=== PATIENT | male | born 1995 | race African-American/Black ===

== ENCOUNTER 2020-01-17 00:22 | Observation (INO) | payer SELFPAY ==
[2020-01-17 02:11] VITALS: BMI 23.2
[2020-01-17 02:35] LABS: #Basophils 0.1 thou/uL (0.0-0.2); #Lymphocytes 1.3 thou/uL (1.20-3.40); #Monocytes 0.2 thou/uL (0.11-0.59); #Neutrophils 12.4 thou/uL (1.40-6.50); %Basophils 0.6 % (0.0-1.0); %Eosinophils 0.1 % (0.0-10.0); %Lymphocytes 9.5 % (21.0-51.0); %Monocytes 1.3 % (0.0-10.0); %Neutrophils 88.6 % (42.0-75.0); Hemoglobin 14.1 g/dL (14.0-18.0); Mean Corpuscular HGB CONC 30.5 g/dL (32.0-36.0); Mean Corpuscular Hemoglobin 27.8 pg (27.0-31.0); Mean Corpuscular Volume 91.4 fL (78.0-98.0); Mean Platelet Volume 9.6 fL (7.4-10.4); Platelet Count 232 thou/uL (130-400); RBC Distribution Width 12.5 % (11.5-14.5); Red Blood Cell (RBC) Count 5.07 mill/uL (4.70-6.10); White Blood Cell (WBC) Count 14.1 thou/uL (4.8-10.8)
[2020-01-17 02:48] LABS: ALT (SGPT) 53 U/L (8-55); AST (SGOT) 22 U/L (5-34); Albumin 3.9 g/dL (3.5-5.0); Alkaline Phosphatase 51 U/L (40-110); Anion Gap 15 mmol/L (10-20); BUN (Urea Nitrogen) 9 mg/dL (8.9-20.6); Bilirubin, Total 0.4 mg/dL (0.2-1.2); Calc. Creatinine Clearance 149 mL/min (70-130); Calcium 9.1 mg/dL (7.8-10.44); Carbon Dioxide 23 mmol/L (22-29); Chloride 105 mmol/L (98-107); Estimated GFR-MDRD Greater than 90; Globulin 3.7 g/dL (2.4-3.5); Glucose 112 mg/dL (70-105); Potassium 4.3 mmol/L (3.5-5.1); Protein, Total 7.6 g/dL (6.0-8.3); Sodium 139 mmol/L (136-145)
[2020-01-17] MEDS: Sodium Chloride 0.9% 1,000 ML IV SCH ×2 (03:18→12:43)
[2020-01-17] MEDS: Ampicillin/Sulbactam 3 GM in Sodium Chloride 0.9% 100 ML IVPB SCH ×4 (03:19→19:59)
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
[2020-01-17] MEDS ORDERED: Piperacillin/Tazobactam 3.375 GM in Sodium Chloride 0.9% 100 ML IVPB SCH (06:00)
[2020-01-17] MEDS: Enoxaparin Sodium 40 MG/0.4 ML SYRINGE SC SCH (08:14)
[2020-01-17] MEDS: Nystatin 500,000 UNITS/5 ML UDCUP SSW SCH ×4 (08:24→19:58)
--- NOTE | 2020-01-17 09:27 | RAD ---
PORTABLE CHEST: DATE: 01/17/2020. PROVIDED CLINICAL HISTORY: Shortness of breath. FINDINGS: Comparison 01/26/2012. Cardiac silhouette appears prominent, which may be at least partially on the ba sis of portable technique. Mild elevation of the right hemidiaphragm, similar to 01/26/2012. No focal consolidation, pleural fluid, or pneumothorax apparent. IMPRESSION: No evidence for an acute cardiopulmonary process. POS: ELIZABETH
[2020-01-17] MEDS ORDERED: Morphine 2 MG/ML SYRINGE SLOW IVP PRN (10:27)
--- NOTE | 2020-01-17 10:30 | PDOC.HOSPP ---
- Subjective Encounter Date: 01/17/20 Encounter Time: 07:15 Subjective: dysphagia and throat pain is better now no trouble breathing is ambulating in room - Objective Vital Signs & Weight: Vital Signs (12 hours) Temp Pulse Resp BP Pulse Ox 01/17/20 07:21 98.3 F 69 18 126/72 99 01/17/20 02:05 98.4 F 54 L 127/74 95 Weight Weight 171 lb 9 oz I&O: 01/16/20 01/17/20 01/18/20 06:59 06:59 06:59 Intake Total 400 Balance 400 Result Diagrams: 01/17/20 02:27 01/17/20 02:27 Hospitalist ROS - Medication Medications: Active Medications Generic Name Dose Route Start Last Admin Trade Name Freq PRN Reason Stop Dose Admin Enoxaparin Sodium 40 mg 01/17/20 09:00 01/17/20 08:14 Lovenox SC Not Given 0900 [place] Sodium Chloride 1,000 mls @ 100 mls/hr 01/17/20 02:00 01/17/20 03:18 Normal Saline 0.9% IV 1,000 mls .Q10H [place] Administration Ampicillin Sodium/Sulbactam 100 mls @ 200 mls/hr 01/17/20 03:00 01/17/20 08: 15 Sodium 3 gm/ Sodium Chloride IVPB 100 mls 0300,0900,1500,2100 [place] Administration Nystatin 500,000 units 01/17/20 09:00 01/17/20 08:24 Mycostatin SSW 500,000 units QID [place] Administration - Exam General Appearance: awake alert Eye: PERRL, anicteric sclera ENT: dry oral mucosa ENT - other findings: right tonsil is enlarged, exudates+ Neck: no JVD Heart: RRR, no murmur Respiratory: no wheezes, no rales Gastrointestinal: soft, non-tender, non-distended, normal bowel sounds Extremities: no cyanosis, no edema Neurological: cranial nerve grossly intact, no focal deficits Psychiatric: normal affect, A&O x 3 Hosp A/P (1) right peritonsillar abscess Status: Acute (2) Tobacco abuse Code(s): Z72.0 - TOBACCO USE Status: Chronic - Plan is npo on unasyn, morphine prn strep throat is -ve await ent opinion gentle iv hydration, wbc is around 14k
[2020-01-17] MEDS: Acetaminophen 325 MG TAB PO PRN ×2 (16:32→23:22)
[2020-01-18] MEDS: Sodium Chloride 0.9% 1,000 ML IV SCH ×2 (03:13→11:31)
[2020-01-18] MEDS: Ampicillin/Sulbactam 3 GM in Sodium Chloride 0.9% 100 ML IVPB SCH ×2 (03:13→08:10)
[2020-01-18 07:37] LABS: #Basophils 0.1 thou/uL (0.0-0.2); #Lymphocytes 2.9 thou/uL (1.20-3.40); #Monocytes 1.1 thou/uL (0.11-0.59); %Basophils 0.9 % (0.0-1.0); %Eosinophils 0.3 % (0.0-10.0); %Lymphocytes 28.6 % (21.0-51.0); %Monocytes 10.9 % (0.0-10.0); %Neutrophils 59.3 % (42.0-75.0); Hemoglobin 15.5 g/dL (14.0-18.0); Mean Corpuscular HGB CONC 32.6 g/dL (32.0-36.0); Mean Corpuscular Hemoglobin 29.8 pg (27.0-31.0); Mean Corpuscular Volume 91.4 fL (78.0-98.0); Mean Platelet Volume 9.4 fL (7.4-10.4); Platelet Count 281 thou/uL (130-400); RBC Distribution Width 12.4 % (11.5-14.5); White Blood Cell (WBC) Count 10.1 thou/uL (4.8-10.8)
[2020-01-18 07:50] LABS: ALT (SGPT) 67 U/L (8-55); AST (SGOT) 28 U/L (5-34); Albumin 3.9 g/dL (3.5-5.0); Alkaline Phosphatase 50 U/L (40-110); Anion Gap 11 mmol/L (10-20); BUN (Urea Nitrogen) 8 mg/dL (8.9-20.6); Bilirubin, Total 0.5 mg/dL (0.2-1.2); Calc. Creatinine Clearance 162 mL/min (70-130); Carbon Dioxide 28 mmol/L (22-29); Chloride 104 mmol/L (98-107); Estimated GFR-MDRD Greater than 90; Globulin 3.8 g/dL (2.4-3.5); Glucose 91 mg/dL (70-105); Potassium 3.3 mmol/L (3.5-5.1); Protein, Total 7.7 g/dL (6.0-8.3); Sodium 140 mmol/L (136-145)
[2020-01-18] MEDS: Enoxaparin Sodium 40 MG/0.4 ML SYRINGE SC SCH (08:08)
[2020-01-18] MEDS: Nystatin 500,000 UNITS/5 ML UDCUP SSW SCH (08:09)
[2020-01-18 08:26] VITALS: BP 132/93; TEMP 98.4
--- NOTE | 2020-01-18 13:36 | CON ---
DATE OF CONSULTATION: CHIEF COMPLAINT: Throat pain, dysphagia, odynophagia, and shortness of breath. HISTORY OF PRESENT ILLNESS: The patient is a 24-year-old male patient, who presents to the hospital with complaints of neck pain that has been going on for about a week. The patient initially thought that he had strep throat, so he started taking his sister's antibiotics and stated that he felt better. However, after he stopped them, he had significant worsening of his throat and inability to eat or drink, and inability to swallow as well as potentially having some trouble taking breath, and presented to the hospital for further evaluation, and was admitted, and I was consulted by Dr. Palma. PAST MEDICAL HISTORY: Noncontributory. PAST SURGICAL HISTORY: The patient has had a previous hand operation and left johnson orthopedic surgery. However, he has had no head or neck surgeries. SOCIAL HISTORY: He does smoke roughly half pack of cigarettes daily and has alcohol use daily, but denies any drug use. FAMILY HISTORY: He has no contributory family history. ALLERGIES: HE HAS NO KNOWN DRUG ALLERGIES. MEDICATIONS: He does not take any current medications. PHYSICAL EXAMINATION: GENERAL: The patient is alert, awake, and oriented x3. He does not appear to be in respiratory distress. HEAD AND FACE: Normocephalic and atraumatic. He has no facial skin lesions. No maxillary tenderness. No frontal tenderness. No parotid or submandibular gland masses or tenderness. EYES: Equally round and reactive to light. Extraocular movements are intact. There is no nystagmus on lateral gaze. EARS: Right and left ear pinna are normal. EACs are clear. There are no drainage or signs of infection in the ear. NOSE: External nose is normal. Nasal mucosa is healthy. There is no purulent drainage. No visible polyps. ORAL CAVITY: Lips, teeth, tongue, gums are normal. Oral mucosa is moist. The tongue is soft and floor of mouth is soft. There are no masses or lesions. The palate has significant swelling and erythema extending down to the right tonsil and tonsillar pillar. There is significant fullness, and with palpation, there is a small ballotable fluid collection. The left tonsil is erythematous and is also edematous, however, there is no palpable fluid collection. NECK: Has mild shotty lymphadenopathy. Trachea is midline. Thyroid is normal in size. No other neck masses. NEUROLOGIC: Cranial nerves 2 through 12 are grossly intact. Mood and affect are normal. IMAGING STUDIES: There is no CT scan evaluation for this patient. PROCEDURE PERFORMED: Right drainage of peritonsillar abscess. ANESTHESIA: Topical 4% lidocaine spray as well as 3 mL of injectable 1% lidocaine to 1:100,000 epinephrine. CONSENT: Paper copy of the consent form was signed and available for review in the paper chart. INDICATION FOR PROCEDURE: Fluid collection around the right peritonsillar mass. PROCEDURE IN DETAIL: The patient had topical lidocaine spray sprayed and gargled and then spit out. Over the area of injection, a small 27-gauge needle was used to inject roughly 3 mL of 1% lidocaine to 1:100,000 epinephrine along the right soft palate and right anterior tonsillar pillar. After 2 minutes, the area was again palpated and an 18-gauge needle was used to perforate the abscess and drain out infected fluid as well as to make a small opening for future purulent drainage. The area was then milked and massaged with a gloved finger, and a small amount of purulence was obtained and drained both through the perforation site as well as through the tonsil. Afterwards, there was less fullness in that area. The patient tolerated the procedure well with minimal bleeding, and the patient was alert and oriented during the procedure and pain was controlled and no complications. ASSESSMENT AND PLAN: A 24-year-old male patient with significant swelling of the right pharynx, tonsil, soft palate, and anterior tonsillar pillar extending down to the glossopharyngeal sulcus with purulent exudates given and right peritonsillar abscess with dysphagia, inability to take p.o., odynophagia, and mild sensation of tightness in the throat, which is causing a feeling of shortness of breath. Given this early improvement on Unasyn, recommend continuing therapy with Augmentin 875 mg and using 600 to 800 mg of ibuprofen as directed at home for pain control with adequate hydration. I instructed if the patient is unable to stay hydrated, he needs to not take ibuprofen and return to the hospital for IV fluids. The patient was in understanding and agreement of this plan and this plan was communicated to the hospitalist, which was primary physician during his admission. The patient was given my information in order to follow up in clinic or to call if there are any other questions as well. Job ID: [id number] [facility]
--- NOTE | 2020-01-18 13:59 | DIS ---
DATE OF ADMISSION: 01/17/2020 DATE OF DISCHARGE: 01/18/2020 DISCHARGE DISPOSITION: Home. PRIMARY DISCHARGE DIAGNOSES: Right peritonsillar abscess, status post drainage by Dr. Rosalino Mann and dysphagia secondary to above. PROCEDURES DONE DURING HOSPITALIZATION: The patient has had drainage of his right peritonsillar abscess done by Dr. Mackenzie Jerry. CT soft tissue neck done showed tonsillar hypertrophy. There was right peritonsillar abscess resulting in narrowing of posterior oral cavity and hypopharynx, reactive right neck lymph nodes. Blood cultures x2, no growth. Group A strep screen was negative. Had a white count of 14 on the day of admission, discharge white count of 10, H and H 15 and 47, platelet count 281, BUN 8, and creatinine 0.7. DISCHARGE MEDICATIONS: 1. Augmentin 875 mg twice daily for 10 days. 2. Motrin 3 times daily p.r.n. for pain. DISCHARGE PLAN: The patient to follow up with Dr. Mackenzie Jerry as advised and his primary care physician at [facility] in 1 week. BRIEF COURSE DURING HOSPITALIZATION: The patient initially was referred to Hospitalist Service for right peritonsillar abscess with dysphagia. He was kept n.p.o. and has had consultation with Dr. Mackenzie Jerry for ENT. The patient was on Unasyn after blood cultures and throat swab was obtained. He has had bedside drainage of right peritonsillar abscess by Dr. Mackenzie Jerry. He is cleared for discharge today. He needs to continue Augmentin for 10 days and Motrin p.r.n. for pain. The patient has been advised to hydrate himself well in addition to oral diet. He needs to follow up with Dr. Mackenzie Jerry as advised. Please note, I have seen and examined the patient on the day of discharge. Job ID: [id number] [id number]
== END 2020-01-18 12:09 | disposition home or self-care (01) ==
LOC: ERS 00:22 → T4-A 01:08
PROVIDERS: ADMIT Internal Medicine; ATTEND Internal Medicine
DX: J36 Peritonsillar abscess (principal); D72.829 Elevated white blood cell count, unspecified; F17.210 Nicotine dependence, cigarettes, uncomplicated; Z91.018 Allergy to other foods
CPT/HCPCS: 36415; 71045; 80053; 85025; 90471; 90732; 96361; 96365; 96366; 96376; 99284; G0009; G0378; J0295; J3490

== ENCOUNTER 2024-03-09 13:15 | Emergency (ER) | payer SELFPAY ==
[2024-03-09 15:44] LABS: #Basophils 0.04 10x3/uL (0.0-0.2); %Basophils 0.3 % (0.0-1.0); %Eosinophils 0.5 % (0.0-10.0); %Lymphocytes 22.7 % (21.0-51.0); %Monocytes 13.2 % (0.0-10.0); Hematocrit 44.2 % (42.0-52.0); Hemoglobin 14.3 g/dL (14.0-18.0); Mean Corpuscular HGB CONC 32.4 g/dL (32.0-36.0); Mean Corpuscular Hemoglobin 28.5 pg (27.0-31.0); Mean Platelet Volume 12.5 fL (7.4-10.4); Platelet Count 179 10x3/uL (130-400); RBC Distribution Width 14.6 % (11.5-14.5); Red Blood Cell (RBC) Count 5.02 mill/uL (4.70-6.10)
[2024-03-09 16:16] LABS: ALT (SGPT) 7 U/L (8-55); AST (SGOT) 14 U/L (5-34); Albumin 3.7 g/dL (3.5-5.0); Alkaline Phosphatase 49 U/L (40-110); Anion Gap 13 mmol/L (10-20); BUN (Urea Nitrogen) 10 mg/dL (8.9-20.6); Bilirubin, Total 0.5 mg/dL (0.2-1.2); Calc. Creatinine Clearance 0 mL/min (70-130); Carbon Dioxide 23 mmol/L (22-29); Chloride 105 mmol/L (98-107); Estimated GFR 126; Globulin 3.8 g/dL (2.4-3.5); Glucose 77 mg/dL (70-105); Potassium 3.7 mmol/L (3.5-5.1); Protein, Total 7.5 g/dL (6.0-8.3); Sodium 137 mmol/L (136-145)
== END 2024-03-09 16:56 | disposition left against medical advice (07) ==
LOC: ERS 13:15
DX: M54.6 Pain in thoracic spine (principal); N39.0 Urinary tract infection, site not specified; F17.210 Nicotine dependence, cigarettes, uncomplicated
CPT/HCPCS: 36415; 87040; 87149; 99283